=== PATIENT | female | born 1985 | race Caucasian/White ===

== ENCOUNTER → 2016-08-15 | Outpatient (CLI) | payer OTHER ==
[~2016-08-15] MED LIST: IRON TABLETS325 MG PO; PROMETHAZINE HC25 M1 PO
[2016-08-15 16:51] VITALS: BP 100/70
[2016-08-15 17:44] VITALS: BP 98/68
== END ==
LOC: COP 16:23
DX: O21.2 Late vomiting of pregnancy (principal); Z3A.31 31 weeks gestation of pregnancy